=== PATIENT | female | born 1930 | race Asian ===

== ENCOUNTER 2017-07-02 15:11 | Inpatient (IN) | payer MEDICARE, OTHER ==
[~2017-07-02] VITALS: Ht 154.9 cm; Wt 57.0 kg
[2017-07-02] MEDS ORDERED: MECLIZINE 12.5 MG TAB PO ONE (16:00)
[2017-07-02] MEDS ORDERED: SOD CHLORIDE 0.9% 500 ML IV STA (17:43)
[2017-07-02 18:00] LABS: BILIRUBIN,INDIRECT 0.1 mg/dl (0-1.1); BILIRUBIN,TOTAL 0.1 mg/dl (0.2-1.3); CALCIUM 7.4 mg/dl (8.4-10.2); CREATININE 2.09 mg/dl (0.44-1.00)
[2017-07-02 18:11] LABS: BASOPHILS % 0.6 % (0.0-2.0); EOSINOPHILS # 0.2 10^3/ul (0.0-0.5); EOSINOPHILS % 2.3 % (0.0-7.0); HEMATOCRIT 29.8 % (37.0-47.0); HEMOGLOBIN 10.5 g/dl (12.0-16.0); LYMPHOCYTES # 0.8 10^3/ul (0.8-2.9); LYMPHOCYTES % 12.8 % (15.0-51.0); MEAN CORPUSCULAR HEMOGLOBIN 31.1 pg (29.0-33.0); MEAN CORPUSCULAR HGB CONC 35.2 g/dl (32.0-37.0); MEAN CORPUSCULAR VOLUME 88.2 fl (82.0-101.0); MEAN PLATELET VOLUME 10.3 fl (7.4-10.4); MONOCYTE # 0.7 10^3/ul (0.3-0.9); MONOCYTES % 11.4 % (0.0-11.0); NEUTROPHIL # 4.6 10^3/ul (1.6-7.5); PLATELET COUNT 144 10^3/UL (140-415); RED BLOOD COUNT 3.38 10^6/ul (4.20-5.40); RED CELL DISTRIBUTION WIDTH 13.7 % (11.5-14.5); WHITE BLOOD COUNT 6.4 10^3/ul (4.8-10.8)
--- NOTE | 2017-07-02 18:26 | RADRPT ---
PROCEDURE: XR Chest. CLINICAL INDICATION: Abdominal pain. TECHNIQUE: Single AP portable chest. COMPARISON: No prior Chest x-ray FINDINGS: The cardiomediastinal silhouette is within normal limits of size. Dual chamber left subclavian pacem krystin. New Atherosclerotic calcification of the aorta. The lungs are clear without pleural effusion or focal consolidation. No pneumothorax. The osseous structures and soft tissues are unremarkable. IMPRESSION: 1. No evidence for active cardiopulmonary disease. RPTAT:AAJJ Physician Moose Date Time Electronically viewed and signed by Physician Moose on 07/02/2017 18:25 NICHOLE/
--- NOTE | 2017-07-02 18:41 | RADRPT ---
PROCEDURE: CT Brain without contrast. CLINICAL INDICATION: Vertigo, altered mental status TECHNIQUE: Routine CT scan of the brain was performed on a high resolution multi detector scanner without intravenous contrast. One or more of the following dose reduction techniques were used: Auto mated exposure control; Adjustment of the mA and/or kV according to patient size; Use of iterative r econstruction technique. CTDI = 45 mGy. DLP = 720 mGy-cm. DICOM images are available. COMPARISON: No prior relevant examinations are available for comparison. FINDINGS: Hemorrhage: No evidence of intracranial hemorrhage. Acute ischemic changes: No evidence of acute ischemic changes. Mass effect: 2.0 x 1.7 x 2.0 cm left opercular extra-axial lesion likely representing a meningioma. Parenchymal volume: Mild central parenchymal volume loss is evident. Ventricular system: Concordant with parenchymal volume. Chronic changes: There are numerous and confluent areas of significant low attenuation change within the supratentorial white matter most compatible with severe chronic microvascular ischemic changes. Atherosclerotic calcifications of the cavernous portions of both internal carotid arteries are prese nt. Extracranial soft tissues: Unremarkable. Calvarium: No fractures. Paranasal sinuses: Visualized paranasal sinuses are clear. Mastoid air cells: Visualized mastoid air cells are clear. IMPRESSION: No acute intracranial abnormalities. Severe chronic-appearing microvascular ischemic changes of the supratentorial white matter. Small left opercular apparent meningioma. RPTAT: AADD .Zoran Rihc MD, Date Time Electronically viewed and signed by .Zoran Rich MD, on 07/02/2017 18:41 .B/
[2017-07-02 19:21] LABS: ADD UMIC YES; UR ASCORBIC ACID NEGATIVE (NEGATIVE); UR BACTERIA FEW /HPF (NONE SEEN); UR BILIRUBIN (Dip) NEGATIVE (NEGATIVE); UR BLOOD (Dip) 1+ mg/dL (NEGATIVE); UR CLARITY CLEAR (CLEAR); UR COLOR YELLOW (YELLOW); UR GLUCOSE (Dip) NEGATIVE (NEGATIVE); UR KETONES (Dip) NEGATIVE (NEGATIVE); UR LEUKOCYTE ESTERASE (Dip) 1+ Leu/ul (NEGATIVE); UR NITRITE (Dip) NEGATIVE (NEGATIVE); UR RBC 3 /HPF (0-5); UR TOTAL PROTEIN (Dip) NEGATIVE (NEGATIVE); UR UROBILINOGEN (Dip) NEGATIVE (NEGATIVE)
[2017-07-02] MEDS ORDERED: SOD CHLORIDE 0.9% 500 ML IV ONE (19:30)
[2017-07-02] MEDS ORDERED: CEFEPIME 1GM/50 ML (PMX) 50 ML IVPB ONE (19:30)
[2017-07-02] MEDS ORDERED: MECL-77 PO (20:06)
[2017-07-02] MEDS ORDERED: HYDR25TA6 PO (20:06)
[2017-07-02] MEDS ORDERED: IBUP-1542 PO (20:06)
[2017-07-02] MEDS ORDERED: LOSA50TA6 PO (20:07)
[2017-07-02] MEDS ORDERED: PREG50CA PO (20:07)
[2017-07-02] MEDS ORDERED: APIX5TAB PO (20:08)
[2017-07-02] MEDS ORDERED: OMEG1CAP2 PO (20:08)
[2017-07-02] MEDS ORDERED: ADV50050 INHALATION (20:09)
[2017-07-02] MEDS ORDERED: ESOM40CA PO (20:10)
[2017-07-02] MEDS ORDERED: CELE100C PO (20:10)
[2017-07-02] MEDS ORDERED: CLINDAMYCIN 300 MG CAP PO ONE (20:30)
[2017-07-02] MEDS ORDERED: SOD CHLORIDE 0.9% 1,000 ML IV ONE (21:00)
[2017-07-02] MEDS ORDERED: ACETAMINOPHEN 325 MG TAB PO PRN (21:00)
[2017-07-02] MEDS ORDERED: ONDANSETRON 4 MG INJ IV PRN (21:00)
[2017-07-02] MEDS ORDERED: POTASSIUM CHLORIDE (SR) 20 MEQ TAB PO ONE (21:27)
[2017-07-02] MEDS ORDERED: ONDANSETRON 4 MG TAB PO PRN (21:30)
[2017-07-02] MEDS ORDERED: NACL 0.9% 3 ML SYG IV SCH (21:30)
[2017-07-02] MEDS ORDERED: NITROGLYCERIN (SL) 0.4 MG TAB SL PRN (21:30)
--- NOTE | 2017-07-02 22:20 | RADRPT ---
PROCEDURE: US renal. CLINICAL INDICATION: Acute kidney injury. TECHNIQUE: Elizabeth scale and color Doppler imaging of the kidneys and bladder. COMPARISON: None Available. FINDINGS: Right kidney: 8.5 cm in length. Normal in echogenicity. No nephrolithiasis, hydronephrosis, or eduar l mass. Left kidney: 9.0 cm in length. Normal in echogenicity. No nephrolithiasis, hydronephrosis, or renal mass. Bladder: Distended and unremarkable. IMPRESSION: 1. Unremarkable renal ultrasound. RPTAT: HLBP .Orlando Panda MD, MD Date Time Electronically viewed and signed by .Orlando Panda MD, MD on 07/02/2017 22:19 .P/
[2017-07-03] VITALS (11 sets, daily range): BP systolic 83–189; BP diastolic 44–95; PULSE 70–78; RESP 16–22; TEMP 98.1; Ht 154.9 cm; Wt 57.0 kg
[2017-07-03] MEDS: HYDROCODONE/APAP (5/325) TAB PO PRN ×2 (00:36→00:42)
[2017-07-03] MEDS ORDERED: AMOXICILLIN/CLAV 875 MG TAB PO SCH (01:00)
[2017-07-03] MEDS: SOD CHLORIDE 0.9% 1,000 ML IV SCH ×2 (02:10→15:37)
[2017-07-03] MEDS ORDERED: CEFTRIAXONE 1 GM/50 ML (PMX) 50 ML IVPB SCH (04:00)
[2017-07-03] MEDS ORDERED: MECLIZINE 25 MG TAB PO PRN (07:30)
--- NOTE | 2017-07-03 07:30 | HP ---
Date/Time of Note Date/Time of Note DATE: 07/03/17 TIME: 07:13 Assessment/Plan VTE Prophylaxis VTE Prophylaxis Intervention: SCD's Lines/Catheters IV [facility] Peripheral IV Urinary Cath still in place: No Assessment/Plan Chief Complaint/Hosp Course This is a 87-year-old female being admitted to the telemetry floor for: #1 Nonoliguric kidney injury: Acute versus acute on chronic. I do not have a baseline creatinine at this time. Creatinine is 2.09, will obtain urine studies , urinalysis did not show any protein. Will obtain a renal ultrasound. Urine microscope. Will provide the patient with IV fluid hydration with normal saline. Will consult nephrology. Hold thiazide diuretic and losartan at this time. Will also hold ibuprofen. #2 acute otitis media: Patient is allergic to penicillin, at the current time will initiate cefuroxime for 10 day treatment. #3 Meningioma: Incidental finding on CT of the brain. She denies any headaches. Will need to discuss this with the patient in the a.m. whether this is new to her or not. #4 hyponatremia: Likely secondary to thiazide effect as well as acute kidney injury. At the current time will provide fluid hydration with normal saline. Will continue to follow. Consult nephro #5 hypokalemia: Likely secondary to poor p.o. intake. We will replete. #6 Normocytic anemia: We will check iron panel. Also possibly secondary to underlying chronic kidney disease #7 thrombocytopenia: Etiology unknown at this time. Patient not having any signs of bleeding. Likely followed up as an outpatient with hematology workup. #8 asthma: Continue patient's home inhalers #9 hypertension: We will hold patient's blood pressure medications at this time in the setting of #1. Likely will need to start new agents depending on patient 's kidney function. #10 arthritis: At the current time will hold ibuprofen secondary to #1, as needed Tylenol. #11 Dual-chamber pacemaker: We will need to confirm with the patient regarding why she was given a pacemaker and she does not state any cardiac conditions. #12 novel anticoagulant: Patient is currently on Eliquis however patient did not state what she why she was on before. Again we will need to obtain a better history from her or any next of kin such as her grandson. #11 DVT GI prophylaxis: Eliquis, continue home PPI Further treatment strategy will be implemented as per the clinical course She is a poor historian will need to obtain old records, contact any close relatives such as her grandson to go for patient's medications as well as medical history. Problems: HPI/ROS Admit Date/Time Admit Date/Time Jul 02, 2017 at 21:16 Hx of Present Illness Chief complaint: Right ear pain, weakness Patient is a poor historian. This is a 87-year-old female who presented to the ED complaining of weakness and right-sided ear pain. She states that she lives in a snf facility where her grandson visits her. She states she had subjective fevers. She also has noticed changes in her hearing with the ear pain, though she also is hard of hearing to a certain degree as well. Allergies: Penicillin Patient's: See VIOLA PERLA Const: As per HPI Eyes : No pain discharge or redness or change in visual acuity ENT: As per HPI Respiratory: No shortness of breath, cough, sputum, wheezing, or pleuritic pain Cardiovascular: No chest pain, palpitation, PND, or edema GI : no change in appetite, abdominal pain, nausea, vomiting, diarrhea, constipation, or change in the color his stool Genitourinary: No dysuria, hematuria, flank pain , discharge or CVA tenderness Musculoskeletal: No joint pain, back pain, neck pain, restricted range of motion in neck or joints Skin: No rash, bruising or hives Neuro: No headache, dizziness, syncope, seizure, focal weakness Endocrine: No polyuria, polydipsia, temperature intolerance Psych: No hallucination, depression, anxiety or suicidal ideation PMH/Family/Social Past Medical History Asthma, hypertension, arthritis, osteoporosis Past Surgical History Pacemaker placement Family History Significant Family History: no pertinent family hx Social History Alcohol Use: none Smoking Status: Never smoker Drug Use: none Exam/Review of Systems Vital Signs Vitals Vital Signs Date Time Temp Pulse Resp B/P Pulse Ox O2 Delivery O2 Flow Rate FiO2 07/03/17 04:01 70 07/03/17 01:28 98.1 20 127/60 96 Room Air Exam Exam General: Patient is lying in bed in no acute distress HEENT: Atraumatic, normocephalic. The pupils are equal, round and reactive. Extraocular motor are intact, right ear pain on palpation of the tragus, erythema of the tympanic membrane with small effusion noted Neck: Supple with full range of motion. No rigidity or meningismus Chest: Nontender Lungs: Clear to auscultation bilaterally no crackles rales or wheezing Heart: Normal S1-S2, Regular rhythm and rate. No overt murmurs appreciated Abdomen: Soft , nontender, nondistended , bowel sounds are present. No guarding no rebound tenderness , No masses or organomegaly. No costovertebral temporal angle mass Extremities: Normal to inspection, no edema no cyanosis Neurologic: Normal mental status, speech normal, cranial nerves II through XII are intact, motor and sensory are intact, gait not assessed however patient states that she uses assistance to ambulate Additional Comments PROCEDURE: CT Brain without contrast. CLINICAL INDICATION: Vertigo, altered mental status TECHNIQUE: Routine CT scan of the brain was performed on a high resolution multi detector scanner without intravenous contrast. One or more of the following dose reduction techniques were used: Automated exposure control; Adjustment of the mA and/or kV according to patient size; Use of iterative reconstruction technique. CTDI = 45 mGy. DLP = 720 mGy-cm. DICOM images are available. COMPARISON: No prior relevant examinations are available for comparison. FINDINGS: Hemorrhage: No evidence of intracranial hemorrhage. Acute ischemic changes: No evidence of acute ischemic changes. Mass effect: 2.0 x 1.7 x 2.0 cm left opercular extra-axial lesion likely representing a meningioma. Parenchymal volume: Mild central parenchymal volume loss is evident. Ventricular system: Concordant with parenchymal volume. Chronic changes: There are numerous and confluent areas of significant low attenuation change within the supratentorial white matter most compatible with severe chronic microvascular ischemic changes. Atherosclerotic calcifications of the cavernous portions of both internal carotid arteries are present. Extracranial soft tissues: Unremarkable. Calvarium: No fractures. Paranasal sinuses: Visualized paranasal sinuses are clear. Mastoid air cells: Visualized mastoid air cells are clear. IMPRESSION: No acute intracranial abnormalities. Severe chronic-appearing microvascular ischemic changes of the supratentorial white matter. Small left opercular apparent meningioma. RPTAT: AADD .Zoran Rich MD, MD Date Time Electronically viewed and signed by .Zoran Rich MD, MD on 07/02/2017 18:41 .B/ CC: EDGAR CONRAD DO PROCEDURE: XR Chest. CLINICAL INDICATION: Abdominal pain. TECHNIQUE: Single AP portable chest. COMPARISON: No prior Chest x-ray FINDINGS: The cardiomediastinal silhouette is within normal limits of size. Dual chamber left subclavian pacemaker. New Atherosclerotic calcification of the aorta. The lungs are clear without pleural effusion or focal consolidation. No pneumothorax. The osseous structures and soft tissues are unremarkable. IMPRESSION: 1. No evidence for active cardiopulmonary disease. RPTAT:AAJJ Cindy Frank Physician Date Time Electronically viewed and signed by Physician Moose on 07/02/2017 18:25 NICHOLE/ CC: EDGAR CONRAD DO Labs Result Diagram: 07/02/17 1540 07/02/17 1540 Medications Medications Current Medications Sodium Chloride (NS) 1,000 ml @ 70 mls/hr [id number] IV Last administered on 02:10; Admin Dose 70 MLS/HR; Start 07/03/17 at 01:00 Ondansetron HCl (Zofran Tab) 4 mg Q6H PRN PO NAUSEA AND/OR VOMITING; Start at 21:30 Nitroglycerin (Nitroglycerin (Sl Tab) 0.4 Mg) 1 tab Q5M PRN SL CHEST PAIN; Start 07/02/17 at 21:30 Acetaminophen (Tylenol Tab) 650 mg Q6H PRN PO PAIN LEVEL 1-3 OR FEVER; Start 07/02/17 at 21:30 Acetaminophen/ Hydrocodone Bitart ([place] (5/325)) 1 tab Q6H PRN PO PAIN LEVEL 4 -6 Last administered on 07/03/17 00:42; Admin Dose 1 TAB; Start 07/02/17 at 21:30 Amoxicillin/ Clavulanate Potassium 875 mg 875 mg BID PO ; Start 07/03/17 at 01: 00 Ceftriaxone Sodium (Rocephin) 50 ml @ 100 mls/hr Q24H IVPB Last administered on 07/03/17t 05:28; Admin Dose 100 MLS/HR; Start 07/03/17 at 04:00 Cefuroxime Axetil (Ceftin) 500 mg BID PO ; Start 07/03/17 at 09:00; Stop 07/13 at 08:59; Status UNMADINA ROWLEY Jul 03, 2017 07:23
[2017-07-03 07:53] LABS: BASOPHILS % 0.9 % (0.0-2.0); EOSINOPHILS # 0.3 10^3/ul (0.0-0.5); EOSINOPHILS % 5.6 % (0.0-7.0); HEMATOCRIT 30.2 % (37.0-47.0); HEMOGLOBIN 10.5 g/dl (12.0-16.0); LYMPHOCYTES # 0.8 10^3/ul (0.8-2.9); LYMPHOCYTES % 16.6 % (15.0-51.0); MEAN CORPUSCULAR HEMOGLOBIN 31.2 pg (29.0-33.0); MEAN CORPUSCULAR HGB CONC 34.8 g/dl (32.0-37.0); MEAN CORPUSCULAR VOLUME 89.6 fl (82.0-101.0); MEAN PLATELET VOLUME 10.3 fl (7.4-10.4); MONOCYTE # 0.7 10^3/ul (0.3-0.9); MONOCYTES % 15.7 % (0.0-11.0); NEUTROPHIL # 2.8 10^3/ul (1.6-7.5); PLATELET COUNT 163 10^3/UL (140-415); RED BLOOD COUNT 3.37 10^6/ul (4.20-5.40); RED CELL DISTRIBUTION WIDTH 13.9 % (11.5-14.5); WHITE BLOOD COUNT 4.6 10^3/ul (4.8-10.8)
[2017-07-03] MEDS: PANTOPRAZOLE (EC) 40 MG TAB PO SCH (08:00)
[2017-07-03 08:24] LABS: ALBUMIN 3.1 g/dl (3.3-4.9); ALBUMIN/GLOBULIN RATIO 0.93; BILIRUBIN,INDIRECT 0.2 mg/dl (0-1.1); BILIRUBIN,TOTAL 0.2 mg/dl (0.2-1.3); CREATININE 1.23 mg/dl (0.44-1.00); POTASSIUM 3.6 mmol/L (3.5-5.1); TOTAL PROTEIN 6.4 g/dl (6.1-8.1)
[2017-07-03 08:44] LABS: THYROID STIMULATING HORMONE 2.14 MIU/L (0.465-4.680)
[2017-07-03] MEDS ORDERED: NON-FORMULARY/PATIENT OWN MED (Esomeprazole Mag Trihydrate (Nexium) 40 MG) PO SCH (09:00)
[2017-07-03] MEDS ORDERED: CEFUROXIME 250 MG TAB PO SCH (09:00)
[2017-07-03] MEDS: FISH OIL 1,000 MG CAP PO SCH (09:53)
[2017-07-03] MEDS: APIXABAN 5 MG TABLET PO SCH ×2 (09:53→21:30)
[2017-07-03] MEDS: SALMETEROL/FLUTICASONE 500/50 INHA INH SCH ×2 (09:53→21:00)
[2017-07-03] MEDS: PREGABALIN 50 MG CAP PO SCH (09:53)
--- NOTE | 2017-07-03 12:06 | CONS ---
DATE OF ADMISSION: 07/02/2017 DATE OF CONSULTATION: 07/03/2017 TYPE OF CONSULTATION: Nephrology. REASON FOR CONSULTATION: Acute kidney injury, hyponatremia. PHYSICIAN REQUESTING CONSULT: Dr. Alejandre. HISTORY OF PRESENT ILLNESS: This is an 87-year-old female with a past medical history of hypertensi on, history of asthma, history of meningioma, who presents to [facility] Emergency Room with weakness, right sided ear pain. The patient comes from a senior care facility. The pa ashley states she has been having subjective fevers, but has noticed also difficulty hearing in her r ight ear. The patient as a result came into the emergency room. Upon arrival, she had laboratory d frantz drawn, which showed a sodium 133, BUN 36, creatinine 2.09. Patient had a CT scan of the brain w [facility] showed apparent angioma and microvascular ischemic changes. Chest x-ray showed no evidence of acute cardiopulmonary disease. In the emergency room, the patient was given IV fluids, IV antibioti cs and admitted up to telemetry for further evaluation. In terms of the patient's renal history, the patient is a poor historian, but denies any prior histo ry of chronic kidney disease and denies any hemoptysis, hematemesis, hematochezia. PAST MEDICAL HISTORY: As stated above, history of hypertension, history of asthma, history of arthr itis. FAMILY HISTORY: Noncontributory. SOCIAL HISTORY: Does not drink, smoke, or drugs. MEDICATIONS: The patient's medications have been reviewed. ALLERGIES: NO KNOWN DRUG ALLERGIES. PAST SURGICAL HISTORY: Status post pacemaker placement. REVIEW OF SYSTEMS: A 14-point review of systems was conducted. Pertinent positives in HPI, otherwi se negative. PHYSICAL EXAMINATION: VITAL SIGNS: Blood pressure is 141/72, respirations 16, pulse 73, temperature 98.1. HEENT: Head is normocephalic. NECK: Supple. HEART: Regular rate. LUNGS: Show diminished breath sounds at base. ABDOMEN: Soft, nontender to palpation without rebound or guarding. EXTREMITIES: Negative for clubbing, cyanosis, no edema. DERMATOLOGIC: No rashes. MUSCULOSKELETAL: No joint effusions. NEUROLOGIC: No focal deficits. LABORATORY DATA: Shows sodium 139, potassium 3.6, chloride 101, BUN 26, creatinine 1.23. White cou nt 4.6, hemoglobin 10.5, hematocrit 30.2, platelet count is 163. IMAGING STUDIES: As stated in HPI. ASSESSMENT AND PLAN: This is an 87-year-old female who presents with: 1. Nonoliguric acute kidney injury with unknown baseline creatinine. Etiology of acute kidney inju ry is likely secondary to hemodynamics, possible NSAID use, possible hydrochlorothiazide and ARB eff ect. The patient is on home regimen of hydrochlorothiazide, ibuprofen and losartan. The patient's initial urinalysis shows no evidence of active sediment. Renal function has been improving with gen tle volume expansion. At this point, continue current treatment plan, supportive care, renally dose all meds. Continue to hold diuretic therapy and ARB at this time, would hold all NSAIDs at this ti me. Continue to monitor closely. We will follow up a renal ultrasound. 2. Hyponatremia secondary to acute kidney injury in conjunction with hydrochlorothiazide. The yoseph ent's sodium levels are improved. Continue to monitor. 3. Hypokalemia secondary to diuretic therapy, resolved. 4. Anemia. Monitor hemoglobin and hematocrit levels. 5. Mineral bone disorder. Continue to monitor calcium and phosphorus levels. 6. Hypertension. Continue to monitor blood pressure and adjust medications. Defer ARB at this marixa e. 7. Acute otitis media. Continue current antibiotic regimen. 8. Meningioma. Continue to monitor. 9. History of asthma. Continue medical management. 10. Arthritis. Continue current treatment plan. Continue pain control. 11. Atrial fibrillation. Continue current medical management. Thank you, Dr. Alejandre, for this interesting consult. It will be a pleasure to follow patient with you throughout the hospital course. Dictated By: PRITESH BARNEY/IVONE Conf#: [id number] DID#: [id number]
--- NOTE | 2017-07-03 17:07 | PN ---
Date/Time of Note Date/Time of Note DATE: 07/03/17 TIME: 17:04 Assessment/Plan VTE Prophylaxis VTE Prophylaxis Intervention: SCD's Lines/Catheters IV Catheter Type (from Nrsg): Peripheral IV Urinary Cath still in place: No Assessment/Plan Assessment/Plan 87 yo F with HTN admitted for feeling dizzy, found to have AOM, hyponatremia and SNEHA suspect the latter 2 are iatrogenic in origin #SNEHA: improving with holding ARB/hctz/nsaids #hyponatremia: likely iatrogenic. hold ARB/hctz #AOM: cont abx, will add cipro drops #normocytic anemia: iron studies pending #?leukopenia: repeat CBC #meningioma: dw pt and her daughter, outpatient follow up #h/o arrhythmia in setting of hx AFib sp PM placement: cont ATC #asthma: cont home meds #8 asthma: Continue patient's home inhalers Subjective 24 Hr Interval Summary Free Text/Dictation wants to try getting out of bed on her own Exam/Review of Systems Vital Signs Vitals Vital Signs Date Time Temp Pulse Resp B/P Pulse Ox O2 Delivery O2 Flow Rate FiO2 07/03/17 16:49 98.0 70 152/79 07/03/17 15:50 20 94 07/03/17 01:28 Room Air Intake and Output 07/02/17 07/02/17 07/03/17 15:00 23:00 07:00 Intake Total 200 ml Balance 200 ml Exam nad no mrg lungs clear abd soft no rashes +RA changes to hands labs reviewed Results Result Diagram: 07/03/17 0709 07/03/17 0709 Results 24 hrs Laboratory Tests Test 07/02/17 19:00 07/02/17 23:52 07/03/17 07:09 Urine Color YELLOW Urine Clarity CLEAR Urine pH 5.0 Urine Specific [place] 1.010 Urine Ketones NEGATIVE Urine Nitrite NEGATIVE Urine Bilirubin NEGATIVE Urine Urobilinogen NEGATIVE Urine Leukocyte Esterase 1+ H Urine Microscopic RBC 3 Urine Microscopic WBC 9 H Urine Bacteria FEW A Urine Hemoglobin 1+ H Urine Glucose NEGATIVE Urine Total Protein NEGATIVE Osmolality 282 Magnesium Level 2.0 White Blood Count 4.6 #L Red Blood Count 3.37 L Hemoglobin 10.5 L Hematocrit 30.2 L Mean Corpuscular Volume 89.6 Mean Corpuscular Hemoglobin 31.2 Mean Corpuscular Hemoglobin Concent 34.8 Red Cell Distribution Width 13.9 Platelet Count 163 Mean Platelet Volume 10.3 Neutrophils % 61.0 Lymphocytes % 16.6 Monocytes % 15.7 H Eosinophils % 5.6 Basophils % 0.9 Nucleated Red Blood Cells % 0.0 Neutrophils # 2.8 Lymphocytes # 0.8 Monocytes # 0.7 Eosinophils # 0.3 Basophils # 0.0 Nucleated Red Blood Cells # 0.0 Sodium Level 139 Potassium Level 3.6 Chloride Level 101 Carbon Dioxide Level 28 Anion Gap 14 Blood Urea Nitrogen 26 H Creatinine 1.23 H Glucose Level 78 Hemoglobin A1c 5.7 Calcium Level 8.0 L Total Bilirubin 0.2 Direct Bilirubin 0.00 Indirect Bilirubin 0.2 Aspartate Amino Transf (AST/SGOT) 23 Alanine Aminotransferase (ALT/SGPT) 25 Alkaline Phosphatase 55 Total Protein 6.4 Albumin 3.1 L Globulin 3.30 H Albumin/Globulin Ratio 0.93 Thyroid Stimulating Hormone (TSH) 2.140 Medications Medications Current Medications Sodium Chloride (NS) 1,000 ml @ 70 mls/hr [id number] IV Last administered on 15:37; Admin Dose 70 MLS/HR; Start 07/03/17 at 01:00 Ondansetron HCl (Zofran Tab) 4 mg Q6H PRN PO NAUSEA AND/OR VOMITING; Start at 21:30 Nitroglycerin (Nitroglycerin (Sl Tab) 0.4 Mg) 1 tab Q5M PRN SL CHEST PAIN; Start 07/02/17 at 21:30 Acetaminophen (Tylenol Tab) 650 mg Q6H PRN PO PAIN LEVEL 1-3 OR FEVER; Start 07/02/17 at 21:30 Acetaminophen/ Hydrocodone Bitart ([place] (5/325)) 1 tab Q6H PRN PO PAIN LEVEL 4 -6 Last administered on 07/03/17 00:42; Admin Dose 1 TAB; Start 07/02/17 at 21:30 Apixaban (Eliquis) 5 mg BID PO Last administered on 07/03/17 09:53; Admin Dose 5 MG; Start 07/03/17 at 09:00 Meclizine HCl (Antivert) 25 mg Q8H PRN PO DIZZINESS Last administered on 12:13; Admin Dose 25 MG; Start 07/03/17 at 07:30 Pregabalin (Lyrica) 50 mg DAILY PO Last administered on 07/03/17 09:53; Admin Dose 50 MG; Start 07/03/17 at 09:00 Salmeterol Xinafoate/ Fluticasone (Advair 500/50 Diskus) 1 inh BID INH Last administered on 07/03/17 09:53; Admin Dose 1 INH; Start 07/03/17 at 09:00 Fish Oil (Fish Oil) 1,000 mg DAILY PO Last administered on 07/03/17 09:53; Admin Dose 1,000 MG; Start 07/03/17 at 09:00 Pantoprazole (Protonix Tab) 40 mg DAILY@06 PO Last administered on 07/03/17 08:00; Admin Dose 40 MG; Start 07/03/17 at 08:00 Carvedilol (Coreg) 3.125 mg BID PO Last administered on 07/03/17 13:00; Admin Dose 3.125 MG; Start 07/03/17 at 13:00 Clonidine (Catapres) 0.1 mg Q6H PRN PO SBP>160 Last administered on 07/03/17 15:39; Admin Dose 0.1 MG; Start 07/03/17 at 15:30 ANURADHA MAY MD Jul 03, 2017 17:07 Dose 5 MG; Start 07/03/17 at 09:00 Meclizine HCl (Antivert) 25 mg Q8H PRN PO DIZZINESS Last administered on 12:13; Admin Dose 25 MG; Start 07/03/17 at 07:30 Pregabalin (Lyrica) 50 mg DAILY PO Last administered on 07/03/17 09:53; Admin Dose 50 MG; Start 07/03/17 at 09:00 Salmeterol Xinafoate/ Fluticasone (Advair 500/50 Diskus) 1 inh BID INH Last administered on 07/03/17 09:53; Admin Dose 1 INH; Start 07/03/17 at 09:00 Fish Oil (Fish Oil) 1,000 mg DAILY PO Last administered on 07/03/17 09:53; Admin Dose 1,000 MG; Start 07/03/17 at 09:00 Pantoprazole (Protonix Tab) 40 mg DAILY@06 PO Last administered on 07/03/17 08:00; Admin Dose 40 MG; Start 07/03/17 at 08:00 Carvedilol (Coreg) 3.125 mg BID PO Last administered on 07/03/17 13:00; Admin Dose 3.125 MG; Start 07/03/17 at 13:00 Clonidine (Catapres) 0.1 mg Q6H PRN PO SBP>160 Last administered on 07/03/17 15:39; Admin Dose 0.1 MG; Start 07/03/17 at 15:30 ANURADHA MAY MD Jul 03, 2017 17:07
[2017-07-03] MEDS: CIPROFLOXACIN HCL OTIC DROP 0.25 ML RIGHT EAR SCH (21:30)
[2017-07-04 02:36] VITALS: BP 129/85; RESP 18
[2017-07-04] MEDS: ACETAMINOPHEN 325 MG TAB PO PRN ×2 (04:43→18:50)
[2017-07-04] MEDS: PANTOPRAZOLE (EC) 40 MG TAB PO SCH (05:37)
[2017-07-04 06:21] LABS: ADD UMIC NO; UR ASCORBIC ACID NEGATIVE (NEGATIVE); UR BILIRUBIN (Dip) NEGATIVE (NEGATIVE); UR BLOOD (Dip) NEGATIVE (NEGATIVE); UR CLARITY CLEAR (CLEAR); UR COLOR YELLOW (YELLOW); UR GLUCOSE (Dip) NEGATIVE (NEGATIVE); UR KETONES (Dip) NEGATIVE (NEGATIVE); UR LEUKOCYTE ESTERASE (Dip) NEGATIVE Leu/ul (NEGATIVE); UR NITRITE (Dip) NEGATIVE (NEGATIVE); UR SPECIFIC GRAVITY (Dip) 1.012 (1.003-1.030); UR TOTAL PROTEIN (Dip) NEGATIVE (NEGATIVE); UR UROBILINOGEN (Dip) NEGATIVE (NEGATIVE)
[2017-07-04 06:47] LABS: ABNORMAL IP MESSAGE 1; EOSINOPHILS # 0.3 10^3/ul (0.0-0.5); EOSINOPHILS % 9.4 % (0.0-7.0); HEMATOCRIT 29.8 % (37.0-47.0); HEMOGLOBIN 10.4 g/dl (12.0-16.0); LYMPHOCYTES # 0.6 10^3/ul (0.8-2.9); LYMPHOCYTES % 18.5 % (15.0-51.0); MEAN CORPUSCULAR HGB CONC 34.9 g/dl (32.0-37.0); MEAN CORPUSCULAR VOLUME 88.7 fl (82.0-101.0); MEAN PLATELET VOLUME 10.4 fl (7.4-10.4); MONOCYTE # 0.4 10^3/ul (0.3-0.9); MONOCYTES % 14.4 % (0.0-11.0); NEUTROPHIL # 1.7 10^3/ul (1.6-7.5); NEUTROPHILS % 56.4 % (39.0-77.0); PLATELET COUNT 163 10^3/UL (140-415); RED BLOOD COUNT 3.36 10^6/ul (4.20-5.40); RED CELL DISTRIBUTION WIDTH 13.6 % (11.5-14.5)
[2017-07-04 07:07] LABS: IRON 23 ug/dl (35-150)
[2017-07-04 07:15] LABS: POSITIVE DIFF @See below
[2017-07-04 07:16] LABS: TOTAL IRON BINDING CAPACITY 249 ug/dl (241-421)
[2017-07-04 07:23] LABS: CALCIUM 8.2 mg/dl (8.4-10.2); CREATININE 0.79 mg/dl (0.44-1.00); MAGNESIUM 1.7 mg/dl (1.7-2.5); PHOSPHORUS 3.1 mg/dl (2.5-4.9); POTASSIUM 3.6 mmol/L (3.5-5.1)
[2017-07-04 08:07] VITALS: BP 155/73; RESP 16
[2017-07-04] MEDS ORDERED: PREGABALIN 25 MG CAP ONE (08:56)
[2017-07-04] MEDS: SALMETEROL/FLUTICASONE 500/50 INHA INH SCH ×2 (09:30→20:03)
[2017-07-04] MEDS: FISH OIL 1,000 MG CAP PO SCH (09:32)
[2017-07-04] MEDS: FERROUS SULFATE (EC) 325 MG TAB PO SCH ×2 (09:32→20:03)
[2017-07-04] MEDS: APIXABAN 5 MG TABLET PO SCH ×2 (09:33→20:03)
[2017-07-04] MEDS: CIPROFLOXACIN HCL OTIC DROP 0.25 ML RIGHT EAR SCH ×2 (09:34→20:04)
[2017-07-04] MEDS ORDERED: VITAMIN A & D 5 GM OINT PACKET TOP ONE (09:41)
[2017-07-04] MEDS: PREGABALIN 50 MG CAP PO SCH (11:05)
[2017-07-04 14:01] VITALS: BP 156/76; RESP 18
--- NOTE | 2017-07-04 14:39 | PN ---
DATE: 07/04/2017 SUBJECTIVE: The patient is stable. No events overnight. OBJECTIVE: VITAL SIGNS: Blood pressure is 129/85, respirations 18, pulse 82, temperature 98.8. HEENT: Head is normocephalic. NECK: Supple. HEART: Regular rate. LUNGS: Show diminished breath sounds at base. ABDOMEN: Soft, nontender to palpation. No rebound or guarding. EXTREMITIES: Negative for clubbing, cyanosis, no edema. DERMATOLOGIC: No rashes. MUSCULOSKELETAL: No joint effusions. NEUROLOGIC: No change in exam. MEDICATIONS: The patient's medications have been reviewed. LABORATORY DATA: Shows white count 3.0, hemoglobin 10.4, platelet count is 163. Sodium 137, BUN 14 , creatinine 0.79. Iron saturation is 9%. ASSESSMENT AND PLAN: 1. Nonoliguric acute kidney injury with unknown baseline creatinine. Etiology of acute kidney inju ry was secondary to hemodynamics, possible NSAID use, ARB effect. The patient's renal function has improved with supportive care and holding diuretic therapy and NSAIDs. The patient's urinalysis was bland, no evidence of active sediment. At this point, will continue current treatment plan, suppor tive care, renally dose all meds. 2. Hyponatremia secondary to hydrochlorothiazide effect, improved. Continue to monitor. 3. Hypokalemia secondary to diuretic therapy, resolved. 4. Anemia with iron deficiency. Recommend starting the patient on iron therapy. 5. Mineral bone disorder. Monitor calcium and phosphorus levels. 6. Hypertension. Continue current blood pressure regimen. May resume patient on ARB. 7. Acute right otitis media: Continue antibiotic regimen. 8. History of asthma. Continue current treatment plan. 9. History of atrial fibrillation. Continue medical management. Dictated By: PRITESH GARCIA DO NR/NTS Conf#: [id number] DID#: [id number] CC: MADINA PEACE MD;*EndCC*
--- NOTE | 2017-07-04 15:47 | PN ---
Date/Time of Note Date/Time of Note DATE: 07/04/17 TIME: 15:44 Assessment/Plan VTE Prophylaxis VTE Prophylaxis Intervention: SCD's Lines/Catheters IV [facility]ter [facility]from [facility]): Saline Lock Urinary Cath still in place: No Assessment/Plan Assessment/Plan 87 yo F with HTN admitted for feeling dizzy, found to have AOM, hyponatremia and SNEHA suspect the latter 2 are iatrogenic in origin #AOM: cont abx #SNEHA:RESOLVED #hyponatremia: RESOLVEDhold ARB/hctz #normocytic anemia: +JESSICA. Start iron #leukopenia: check B12/folate. outpatient follow up #meningioma: dw pt and her daughter 07.03, outpatient follow up #h/o arrhythmia in setting of hx AFib sp PM placement: cont ATC #asthma: cont home meds #dispo: PT says SNF v HH. CM cs placed Subjective 24 Hr Interval Summary Free Text/Dictation still a little dizzy Exam/Review of Systems Vital Signs Vitals Vital Signs Date Time Temp Pulse Resp B/P Pulse Ox O2 Delivery O2 Flow Rate FiO2 07/04/17 14:01 98.4 78 18 156/76 98 07/03/17 01:28 Room Air Intake and Output 07/03/17 07/03/17 07/04/17 15:00 23:00 07:00 Intake Total 505 ml Balance 505 ml Exam nad no mrg lungs clear abd soft no rashes labs reviewed Cr nl. Na nl. Iron low. TSH nl, cortisol nl Results Result Diagram: 07/04/17 0549 07/04/17 0549 Results 24 hrs Laboratory Tests Test 07/04/17 02:00 07/04/17 05:49 07/04/17 06:02 Urine Color YELLOW Urine Clarity CLEAR Urine pH 6.0 Urine Specific [place] 1.012 Urine Ketones NEGATIVE Urine Nitrite NEGATIVE Urine Bilirubin NEGATIVE Urine Urobilinogen NEGATIVE Urine Leukocyte Esterase NEGATIVE Urine Hemoglobin NEGATIVE Urine Osmolality 527 Urine Random Creatinine 44.49 Urine Random Sodium 147 H Urine Glucose NEGATIVE Urine Total Protein 17.0 H White Blood Count 3.0 #L Red Blood Count 3.36 L Hemoglobin 10.4 L Hematocrit 29.8 L Mean Corpuscular Volume 88.7 Mean Corpuscular Hemoglobin 31.0 Mean Corpuscular Hemoglobin Concent 34.9 Red Cell Distribution Width 13.6 Platelet Count 163 Mean Platelet Volume 10.4 Neutrophils % 56.4 Lymphocytes % 18.5 Monocytes % 14.4 H Eosinophils % 9.4 H Basophils % 1.0 Nucleated Red Blood Cells % 0.0 Neutrophils # 1.7 Lymphocytes # 0.6 L Monocytes # 0.4 Eosinophils # 0.3 Basophils # 0.0 Nucleated Red Blood Cells # 0.0 Sodium Level 137 Potassium Level 3.6 Chloride Level 100 Carbon Dioxide Level 29 Anion Gap 12 Blood Urea Nitrogen 14 # Creatinine 0.79 Glucose Level 86 Calcium Level 8.2 L Phosphorus Level 3.1 Magnesium Level 1.7 Iron Level 23 L Total Iron Binding Capacity 249 Percent Iron Saturation 9 L Random Cortisol 9.4 Medications Medications Current Medications Ondansetron HCl (Zofran Tab) 4 mg Q6H PRN PO NAUSEA AND/OR VOMITING; Start at 21:30 Nitroglycerin (Nitroglycerin (Sl Tab) 0.4 Mg) 1 tab Q5M PRN SL CHEST PAIN; Start 07/02/17 at 21:30 Acetaminophen (Tylenol Tab) 650 mg Q6H PRN PO PAIN LEVEL 1-3 OR FEVER Last administered on 07/04/17 04:43; Admin Dose 650 MG; Start 07/02/17 at 21:30 Acetaminophen/ Hydrocodone Bitart ([place]ont (5/325)) 1 tab Q6H PRN PO PAIN LEVEL 4 -6 Last administered on 07/03/17 00:42; Admin Dose 1 TAB; Start 07/02/17 at 21:30 Apixaban (Eliquis) 5 mg BID PO Last administered on 07/04/17 09:33; Admin Dose 5 MG; Start 07/03/17 at 09:00 Meclizine HCl (Antivert) 25 mg Q8H PRN PO DIZZINESS Last administered on 12:13; Admin Dose 25 MG; Start 07/03/17 at 07:30 Pregabalin (Lyrica) 50 mg DAILY PO Last administered on 07/04/17 11:05; Admin Dose 50 MG; Start 07/03/17 at 09:00 Salmeterol Xinafoate/ Fluticasone (Advair 500/50 Diskus) 1 inh BID INH Last administered on 07/04/17 09:30; Admin Dose 1 INH; Start 07/03/17 at 09:00 Fish Oil (Fish Oil) 1,000 mg DAILY PO Last administered on 07/04/17 09:32; Admin Dose 1,000 MG; Start 07/03/17 at 09:00 Pantoprazole (Protonix Tab) 40 mg DAILY@06 PO Last administered on 07/04/17 05:37; Admin Dose 40 MG; Start 07/03/17 at 08:00 Carvedilol (Coreg) 3.125 mg BID PO Last administered on 07/04/17 09:34; Admin Dose 3.125 MG; Start 07/03/17 at 13:00 Clonidine (Catapres) 0.1 mg Q6H PRN PO SBP>160 Last administered on 07/03/17 15:39; Admin Dose 0.1 MG; Start 07/03/17 at 15:30 Ciprofloxacin HCl (Ciprofloxacin HCl Otic) 5 drop BID RIGHT EAR Last administered on 07/04/17 09:34; Admin Dose 5 DROP; Start 07/03/17 at 21:00 Ferrous Sulfate (Ferrous Sulfate (Ec)) 325 mg BID PO Last administered on 07/04 09:32; Admin Dose 325 MG; Start 07/04/17 at 09:00 ANURADHA MAY MD Jul 04, 2017 15:46
[2017-07-04 20:00] VITALS: BP 180/86; PULSE 80; RESP 18
--- NOTE | 2017-07-04 21:39 | ERD ---
ER Documentation Chief Complaint Chief Complaint BIBRA 83 for c/o weak and dizziness HPI Paramedics also report low blood pressure in the field. This 87-year-old female is brought in by ambulance because she has been feeling generalized weakness as well as dizziness described as a lightheadedness the last 2 days. Paramedics were not sure the patient's baseline is that she is slightly confused. She denies any pain including chest pain. She states that she has felt extra cold lately but denies fevers. Paramedics also report low blood pressure in the field ROS All systems reviewed and are negative except as per history of present illness. Medications Home Meds Reported Medications Celecoxib* (Celebrex*) 100 Mg Capsule, 100 MG PO BID, CAP 07/02/17 Esomeprazole Mag Trihydrate (Nexium) 40 Mg Capsule.dr, 40 MG PO DAILY, #30 CAP 07/02/17 Salmeterol Xinaf-Fluticasone* (Advair*) 500/50 Diskus Inhaler, 1 INH INHALATION BID, #1 INHALER 07/02/17 [place]-3 Acid Ethyl Esters (Lovaza) 1 Gm Capsule, 1 GM PO DAILY, CAP 07/02/17 Apixaban* (Eliquis*) 5 Mg Tablet, 5 MG PO BID, TAB 07/02/17 Pregabalin* (Lyrica*) 50 Mg Capsule, 50 MG PO DAILY, CAP 07/02/17 Losartan Potassium* (Losartan Potassium*) 50 Mg Tablet, 50 MG PO DAILY, TAB 07/02/17 Ibuprofen* (Ibuprofen*) 600 Mg Tablet, 600 MG PO Q8, TAB 07/02/17 Hydrochlorothiazide* (Hydrochlorothiazide*) 25 Mg Tab, 25 MG PO DAILY, #30 TAB 07/02/17 Meclizine Hcl* (Meclizine Hcl*) 25 Mg Tablet, 25 MG PO Q8H Y for DIZZINESS, TAB 07/02/17 Allergies Allergies: Coded Allergies: No Known Drug Allergy (Unverified Allergy, Unknown, 07/02/17) Penicillins (Verified Allergy, Unknown, 07/03/17) PMhx/Soc History of Surgery: Yes (Pacemaker () Anesthesia Reaction: No Hx Neurological Disorder: No Hx Respiratory Disorders: Yes (Asthma) Hx Cardiac Disorders: Yes (Pacemaker, HTN) Hx Psychiatric Problems: No Hx Miscellaneous Medical Probl: Yes (See EMR.) Hx Alcohol Use: No Hx Substance Use: No Hx Tobacco Use: No Smoking Status: Never smoker Physical Exam Vitals Vital Signs Date Time Temp Pulse Resp B/P Pulse Ox O2 Delivery O2 Flow Rate FiO2 07/02/17 19:25 98.0 18 133/72 100 Room Air 07/02/17 17:29 75 16 99/57 100 Room Air 07/02/17 15:23 98.3 77 20 95/56 100 Physical Exam Const: [] Mild distress Head: Atraumatic Eyes: Normal Conjunctiva, EOMI, PERRLA ENT: Normal External Ears, Nose and Mouth. Neck: Full range of motion..~ No meningismus. Resp: Clear to auscultation bilaterally Cardio: Regular rate and rhythm, no murmurs Abd: Soft, non tender, non distended. Normal bowel sounds Skin: No petechiae or rashes Back: No midline or flank tenderness Ext: No cyanosis, or edema Neur: Awake and alert and oriented 2, no focal deficits, 5 out of 5 strength all extremities Psych: Normal Mood and Affect Result Diagram: 07/04/17 0549 07/04/17 0549 Results 24 hrs Laboratory Tests Test 07/02/17 15:40 07/02/17 19:00 White Blood Count 6.410^3/ul Red Blood Count 3.3810^6/ul Hemoglobin 10.5g/dl Hematocrit 29.8% Mean Corpuscular Volume 88.2fl Mean Corpuscular Hemoglobin 31.1pg Mean Corpuscular Hemoglobin Concent 35.2g/dl Red Cell Distribution Width 13.7% Platelet Count 11682^3/UL Mean Platelet Volume 10.3fl Neutrophils % 72.0% Lymphocytes % 12.8% Monocytes % 11.4% Eosinophils % 2.3% Basophils % 0.6% Nucleated Red Blood Cells % 0.0/100WBC Neutrophils # 4.610^3/ul Lymphocytes # 0.810^3/ul Monocytes # 0.710^3/ul Eosinophils # 0.210^3/ul Basophils # 0.010^3/ul Nucleated Red Blood Cells # 0.010^3/ul Sodium Level 133mmol/L Potassium Level 3.0mmol/L Chloride Level 97mmol/L Carbon Dioxide Level 23mmol/L Anion Gap 16 Blood Urea Nitrogen 36mg/dl Creatinine 2.09mg/dl Glucose Level 89mg/dl Calcium Level 7.4mg/dl Total Bilirubin 0.1mg/dl Direct Bilirubin 0.00mg/dl Indirect Bilirubin 0.1mg/dl Aspartate Amino Transf (AST/SGOT) 57IU/L Alanine Aminotransferase (ALT/SGPT) 27IU/L Alkaline Phosphatase 62IU/L Total Protein 6.0g/dl Albumin 3.0g/dl Globulin 3.00g/dl Albumin/Globulin Ratio 1.00 Urine Color YELLOW Urine Clarity CLEAR Urine pH 5.0 Urine Specific [place] 1.010 Urine Ketones NEGATIVEmg/dL Urine Nitrite NEGATIVEmg/dL Urine Bilirubin NEGATIVEmg/dL Urine Urobilinogen NEGATIVEmg/dL Urine Leukocyte Esterase 1+Matt/ul Urine Microscopic RBC 3/HPF Urine Microscopic WBC 9/HPF Urine Bacteria FEW/HPF Urine Hemoglobin 1+mg/dL Urine Glucose NEGATIVEmg/dL Urine Total Protein NEGATIVEmg/dl Current Medications Medications (Trade) Dose Ordered Sig/Karena Route PRN Reason Start Time Stop Time Status Last Admin Dose Admin Meclizine HCl 25 mg 25 mg ONCE ONCE PO 07/02/17 16:00 07/02/17 16:01 DC 07/02/17 16:04 Sodium Chloride 500 ml @ 500 mls/hr Q1H STAT IV 07/02/17 17:43 07/02/17 18:42 DC 07/02/17 17:48 Cefepime HCl 50 ml @ 100 mls/hr ONCE ONCE IVPB 07/02/17 19:30 07/02/17 19:59 DC 07/02/17 19:56 Sodium Chloride (NS) 500 ml @ 500 mls/hr Q1H ONCE IV 07/02/17 19:30 07/02/17 20:29 DC 07/02/17 19:57 Clindamycin HCl (Cleocin) 300 mg ONCE ONCE PO 07/02/17 20:30 07/02/17 20:31 DC 07/02/17 21:47 Ondansetron HCl (Zofran Inj) 4 mg BRIDGE ORDER PRN IV NAUSEA AND/OR VOMITING 07/02/17 21:00 07/03/17 07:27 DC 07/02/17 22:54 Acetaminophen 650 mg 650 mg ER BRIDGE PRN PO MILD PAIN/FEVER 07/02/17 21:00 07/03/17 07:27 DC Sodium Chloride (NS) 1,000 ml @ 1,000 mls/hr Q1H ONCE IV 07/02/17 21:00 07/02/17 21:59 DC 07/02/17 21:14 Procedures/MDM UTI with dehydration, confusion, acute kidney injury, hypokalemia, hyponatremia in an elderly female. She is on a thiazide diuretic. No signs of acute cardiac ischemia. Is hydrated with normal saline. Hypotension did respond to fluid resuscitation and it was not necessary to start pressors or central line. Is also given cefepime and urine culture was obtained. She also has supportive right otitis media. She was given clindamycin tablet. She will need to be admitted for further hydration and correction of her renal abnormalities. I do not have a baseline creatinine I believe that this is at least partially acute the patient is significantly dehydrated on physical exam. Spoke with Dr. Alejandre will be admitting the patient for further resuscitation , potassium replacement, correction of sodium, management and workup. EKG interpretation: Sinus origin of rhythm without ST or T-wave changes concerning for acute ischemia monitor tech interpretation: Sinus rhythm without arrhythmia Chest x-ray interpretation: I see no acute process. I see no infiltrates, no widened mediastinum, no pneumothorax, no pulmonary edema, no fractures. Brain CT interpretation: See no acute process. I see no hemorrhage, no mass- effect, midline shift, no skull fracture. Patient does have an incidental meningioma. Departure Diagnosis: Primary Impression: Dehydration Additional Impressions: Complicated UTI (urinary tract infection) Otitis media Hyponatremia Hypokalemia Generalized weakness Normocytic anemia Meningioma Condition: Serious EDGAR CONRAD DO Jul 04, 2017 20:43
[2017-07-05] MEDS: PANTOPRAZOLE (EC) 40 MG TAB PO SCH ×2 (06:00→08:22)
[2017-07-05 07:13] LABS: CALCIUM 8.5 mg/dl (8.4-10.2); CREATININE 0.75 mg/dl (0.44-1.00); MAGNESIUM 1.9 mg/dl (1.7-2.5); PHOSPHORUS 3.3 mg/dl (2.5-4.9); POTASSIUM 3.6 mmol/L (3.5-5.1)
[2017-07-05] MEDS: ACETAMINOPHEN 325 MG TAB PO PRN (08:21)
[2017-07-05] MEDS: CIPROFLOXACIN HCL OTIC DROP 0.25 ML RIGHT EAR SCH (08:21)
[2017-07-05] MEDS: APIXABAN 5 MG TABLET PO SCH (08:22)
[2017-07-05] MEDS: FERROUS SULFATE (EC) 325 MG TAB PO SCH (08:22)
[2017-07-05] MEDS: FISH OIL 1,000 MG CAP PO SCH (08:22)
[2017-07-05] MEDS: PREGABALIN 50 MG CAP PO SCH (08:22)
[2017-07-05] MEDS: SALMETEROL/FLUTICASONE 500/50 INHA INH SCH (08:24)
[2017-07-05 08:57] VITALS: BP 177/82; PULSE 80
[2017-07-05] MEDS ORDERED: LISINOPRIL 10 MG TAB PO SCH (09:00)
[2017-07-05 09:15] VITALS: BP 172/89
--- NOTE | 2017-07-05 10:18 | PN ---
DATE: 07/05/2017 SUBJECTIVE: The patient is stable. No events overnight. OBJECTIVE: VITAL SIGNS: Blood pressure is 156/76, respiration 18, pulse 78, temperature 98.4. HEENT: Head is normocephalic. NECK: Supple. HEART: Regular rate. LUNGS: Show diminished breath sounds at base. ABDOMEN: Soft, nontender to palpation. No rebound or guarding. EXTREMITIES: Negative for clubbing, cyanosis, no edema. DERMATOLOGIC: No rashes. MUSCULOSKELETAL: No joint effusions. NEUROLOGIC: No change in exam. MEDICATIONS: The patient's medications have been reviewed. LABORATORY DATA: Shows a BMP within normal limits. ASSESSMENT AND PLAN: 1. Nonoliguric acute kidney injury with unknown baseline creatinine. Etiology is secondary to hemo dynamics. Renal function has returned has normalized. At this point, continue current treatment pl an, supportive care, renally dose all meds. 2. Hyponatremia secondary to hydrochlorothiazide effect, improved. 3. Hypokalemia, resolved. 4. Anemia of iron deficiency. Continue iron therapy. 5. Mineral bone disorder. Monitor calcium and phosphorus levels. 6. Hypertension. Blood pressure is elevated. Will start the patient on lisinopril, monitor renal function. 7. Acute otitis media. Continue antibiotic therapy. 8. History of asthma. Continue with treatment plan. 9. History of atrial fibrillation. Continue medical management. Dictated By: PRITESH BARNEY/IVONE Conf#: [id number] DID#: [id number] CC: MADINA PEACE MD;*EndCC*
[2017-07-05 11:39] VITALS: BP 177/98; PULSE 82
[2017-07-05 12:26] VITALS: BP 119/80; PULSE 65
[2017-07-05 14:13] VITALS: BP 125/79; PULSE 87
[2017-07-05] MEDS ORDERED: CARV3.1260 PO (14:49)
[2017-07-05] MEDS ORDERED: FER325 PO (14:49)
--- NOTE | 2017-07-05 14:53 | PDOCDIS ---
Discharge Instructions CONDITION Patient Condition: Stable HOME CARE INSTRUCTIONS: Special Diet: MECHANICAL SOFT FOLLOW UP/APPOINTMENTS Follow-up Plan We made some adjustments to your blood pressure medications: STARTED carvedilol/coreg twice daily STOPPED hydrochlorothiazide You still have several more days of ear drops and antibiotic pills for your ear infection Also you have been started on iron because the iron levels in your blood are low Do not hesitate to return to the ER should you experience, chest pain, shortness of breath, worsening dizziness, or any other troubling symptoms Please discuss this information with your regular doctor ANURADHA MAY MD Jul 05, 2017 14:53
[2017-07-05] MEDS ORDERED: CEFU500T45 PO (14:57)
[2017-07-05] MEDS ORDERED: CIPR1DRO3 RIGHT EAR (14:57)
--- NOTE | 2017-07-05 15:18 | DS ---
Date/Time of Note Date/Time of Note DATE: 07/05/17 TIME: 15:13 Discharge Summary Admission/Discharge Info Admit Date/Time Jul 02, 2017 at 21:16 Discharge Date/Time Discharge Diagnosis acute otitis media R ear, hyponatremia from hctz (resolved), meningioma, leukopenia, iron deficiency anemia Patient Condition: Stable Consults nephrology Procedures 12.14 NCCT head IMPRESSION: No acute intracranial abnormalities. Severe chronic-appearing microvascular ischemic changes of the supratentorial white matter. Small left opercular apparent meningioma. (2.0 x 1.7 x 2.0 cm left opercular extra-axial lesion likely representing a meningioma.) 12.14 DANIEL IMPRESSION: 1. Unremarkable renal ultrasound. 12.14 CXR IMPRESSION: 1. No evidence for active cardiopulmonary disease. 12.16 urine culture no growth Hematology - 72 Hrs Test 07/02/17 15:40 07/03/17 07:09 07/04/17 05:49 White Blood Count 6.410^3/ul (4.8-10.8) 4.610^3/ul (4.8-10.8) #L 3.010^3/ul (4.8-10.8) #L Red Blood Count 3.3810^6/ul (4.20-5.40) L 3.3710^6/ul (4.20-5.40) L 3.3610^6/ul (4.20-5.40) L Hemoglobin 10.5g/dl (12.0-16.0) L 10.5g/dl (12.0-16.0) L 10.4g/dl (12.0-16.0) L Hematocrit 29.8% (37.0-47.0) L 30.2% (37.0-47.0) L 29.8% (37.0-47.0) L Mean Corpuscular Volume 88.2fl (82.0-101.0) 89.6fl (82.0-101.0) 88.7fl (82.0-101.0) Mean Corpuscular Hemoglobin 31.1pg (29.0-33.0) 31.2pg (29.0-33.0) 31.0pg (29.0-33.0) Mean Corpuscular Hemoglobin Concent 35.2g/dl (32.0-37.0) 34.8g/dl (32.0-37.0) 34.9g/dl (32.0-37.0) Red Cell Distribution Width 13.7% (11.5-14.5) 13.9% (11.5-14.5) 13.6% (11.5-14.5) Platelet Count 45049^3/UL (140-415) 61089^3/UL (140-415) 96818^3/UL (140-415) Mean Platelet Volume 10.3fl (7.4-10.4) 10.3fl (7.4-10.4) 10.4fl (7.4-10.4) Neutrophils % 72.0% (39.0-77.0) 61.0% (39.0-77.0) 56.4% (39.0-77.0) Lymphocytes % 12.8% (15.0-51.0) L 16.6% (15.0-51.0) 18.5% (15.0-51.0) Monocytes % 11.4% (0.0-11.0) H 15.7% (0.0-11.0) H 14.4% (0.0-11.0) H Eosinophils % 2.3% (0.0-7.0) 5.6% (0.0-7.0) 9.4% (0.0-7.0) H Basophils % 0.6% (0.0-2.0) 0.9% (0.0-2.0) 1.0% (0.0-2.0) Nucleated Red Blood Cells % 0.0/100WBC (0.0-0.0) 0.0/100WBC (0.0-0.0) 0.0/100WBC (0.0-0.0) Neutrophils # 4.610^3/ul (1.6-7.5) 2.810^3/ul (1.6-7.5) 1.710^3/ul (1.6-7.5) Lymphocytes # 0.810^3/ul (0.8-2.9) 0.810^3/ul (0.8-2.9) 0.610^3/ul (0.8-2.9) L Monocytes # 0.710^3/ul (0.3-0.9) 0.710^3/ul (0.3-0.9) 0.410^3/ul (0.3-0.9) Eosinophils # 0.210^3/ul (0.0-0.5) 0.310^3/ul (0.0-0.5) 0.310^3/ul (0.0-0.5) Basophils # 0.010^3/ul (0.0-0.1) 0.010^3/ul (0.0-0.1) 0.010^3/ul (0.0-0.1) Nucleated Red Blood Cells # 0.010^3/ul (0.0-0.0) 0.010^3/ul (0.0-0.0) 0.010^3/ul (0.0-0.0) Chemistry Test 07/02/17 15:40 07/02/17 23:52 07/03/17 07:09 07/04/17 05:49 Sodium Level 133mmol/L (135-144) L 139mmol/L (135-144) 137mmol/L (135-144) Potassium Level 3.0mmol/L (3.5-5.1) L 3.6mmol/L (3.5-5.1) 3.6mmol/L (3.5-5.1) Chloride Level 97mmol/L (97-110) 101mmol/L (97-110) 100mmol/L (97-110) Carbon Dioxide Level 23mmol/L (21-31) 28mmol/L (21-31) 29mmol/L (21-31) Anion Gap 16 (8-16) 14 (8-16) 12 (8-16) Blood Urea Nitrogen 36mg/dl (7-20) H 26mg/dl (7-20) H 14mg/dl (7-20) # Creatinine 2.09mg/dl (0.44-1.00) H 1.23mg/dl (0.44-1.00) H 0.79mg/dl (0.44-1.00) Glucose Level 89mg/dl (70-220) 78mg/dl (70-220) 86mg/dl (70-220) Calcium Level 7.4mg/dl (8.4-10.2) L 8.0mg/dl (8.4-10.2) L 8.2mg/dl (8.4-10.2) L Total Bilirubin 0.1mg/dl (0.2-1.3) L 0.2mg/dl (0.2-1.3) Direct Bilirubin 0.00mg/dl (0.00-0.20) 0.00mg/dl (0.00-0.20) Indirect Bilirubin 0.1mg/dl (0-1.1) 0.2mg/dl (0-1.1) Aspartate Amino Transf (AST/SGOT) 57IU/L (15-46) H 23IU/L (15-46) Alanine Aminotransferase (ALT/SGPT) 27IU/L (13-69) 25IU/L (13-69) Alkaline Phosphatase 62IU/L (42-121) 55IU/L (42-121) Total Protein 6.0g/dl (6.1-8.1) L 6.4g/dl (6.1-8.1) Albumin 3.0g/dl (3.3-4.9) L 3.1g/dl (3.3-4.9) L Globulin 3.00g/dl (1.3-3.2) 3.30g/dl (1.3-3.2) H Albumin/Globulin Ratio 1.00 0.93 Osmolality 282mOsm/kg (280-295) Magnesium Level 2.0mg/dl (1.7-2.5) 1.7mg/dl (1.7-2.5) Hemoglobin A1c 5.7% (0-5.9) Thyroid Stimulating Hormone (TSH) 2.140MIU/L (0.465-4.680) Phosphorus Level 3.1mg/dl (2.5-4.9) Iron Level 23ug/dl (35-150) L Total Iron Binding Capacity 249ug/dl (241-421) Percent Iron Saturation 9% SAT (22-52) L Test 07/04/17 06:02 07/05/17 05:52 Random Cortisol 9.4ug/dl Sodium Level 139mmol/L (135-144) Potassium Level 3.6mmol/L (3.5-5.1) Chloride Level 100mmol/L (97-110) Carbon Dioxide Level 29mmol/L (21-31) Anion Gap 14 (8-16) Blood Urea Nitrogen 10mg/dl (7-20) Creatinine 0.75mg/dl (0.44-1.00) Glucose Level 87mg/dl (70-220) Calcium Level 8.5mg/dl (8.4-10.2) Phosphorus Level 3.3mg/dl (2.5-4.9) Magnesium Level 1.9mg/dl (1.7-2.5) Laboratory Tests Test 07/04/17 05:49 07/05/17 05:52 Blood Urea Nitrogen 14mg/dl 10mg/dl Carbon Dioxide Level 29mmol/L 29mmol/L Chloride Level 100mmol/L 100mmol/L Creatinine 0.79mg/dl 0.75mg/dl Glucose Level 86mg/dl 87mg/dl Hematocrit 29.8% Hemoglobin 10.4g/dl Platelet Count 99795^3/UL Potassium Level 3.6mmol/L 3.6mmol/L Sodium Level 137mmol/L 139mmol/L White Blood Count 3.010^3/ul Hx of Present Illness Chief complaint: Right ear pain, weakness Patient is a poor historian. This is a 87-year-old female who presented to the ED complaining of weakness and right-sided ear pain. She states that she lives in a [facility] facility where her grandson visits her. She states she had subjective fevers. She also has noticed changes in her hearing with the ear pain, though she also is hard of hearing to a certain degree as well. Hospital Course 87 yo F with HTN admitted for feeling dizzy, found to have AOM, hyponatremia and SNEHA suspect the latter 2 are iatrogenic in origin. Pt started on PO and topical ear drops for AOM. SNEHA resolved within 1 day of admission. NSAIDs also held. Hyponatremia resolved with cessation of hctz. BB initiated for improved BP control. Labs notable for anemia, w/u revealed JESSICA. Iron started. PCP follow up advised. WBCs nl on admission, slightly low at dc; PCP f/u advised. Neuroimaging with incidental finding of likely meningioma. This was discussed with patient and 2 of her daughters. PCP f/u advised. Above info dw pt and daughter on date of discharge. Daughter served as [employer] radiologic technology program director. Pt and daughter at bedside did not have contact info for pt's PCP at time of discharge. Pt's pharmacy was not open on Thursday to provide this info. I left a voicemail with pt's daughter Nakia requesting a call back with pt's PCP info. A copy of this dc summary was given pt patient to share with PCP as well Home Meds Active Scripts Cefuroxime Axetil* (Cefuroxime Axetil*) 500 Mg Tablet, 500 MG PO BID for 8 Days , #16 TAB Prov:ANURADHA MAY MD 07/05/17 Ciprofloxacin Hcl (CIPROFLOXACIN HCL) 1 Each Droperette, 5 DROP RIGHT EAR BID for 8 Days, #1 BOTTLE Prov:ANURADHA AMY MD 07/05/17 Carvedilol* (Carvedilol*) 3.125 Mg Tablet, 3.125 MG PO BID for 30 Days, #60 TAB Prov:ANURADHA AMY MD 07/05/17 Ferrous Sulfate* (Ferrous Sulfate*) 325 Mg Tabec, 325 MG PO BID for 30 Days, # 60 TAB Prov:ANURADHA MAY MD 07/05/17 Reported Medications Celecoxib* (Celebrex*) 100 Mg Capsule, 100 MG PO BID, CAP 07/02/17 Esomeprazole Mag Trihydrate (Nexium) 40 Mg Capsule.dr, 40 MG PO DAILY, #30 CAP 07/02/17 Salmeterol Xinaf-Fluticasone* (Advair*) 500/50 Diskus Inhaler, 1 INH INHALATION BID, #1 INHALER 07/02/17 [place]-3 Acid Ethyl Esters (Lovaza) 1 Gm Capsule, 1 GM PO DAILY, CAP 07/02/17 Apixaban* (Eliquis*) 5 Mg Tablet, 5 MG PO BID, TAB 07/02/17 Pregabalin* (Lyrica*) 50 Mg Capsule, 50 MG PO DAILY, CAP 07/02/17 Losartan Potassium* (Losartan Potassium*) 50 Mg Tablet, 50 MG PO DAILY, TAB 07/02/17 Meclizine Hcl* (Meclizine Hcl*) 25 Mg Tablet, 25 MG PO Q8H Y for DIZZINESS, TAB 07/02/17 Discontinued Reported Medications Ibuprofen* (Ibuprofen*) 600 Mg Tablet, 600 MG PO Q8, TAB 07/02/17 Hydrochlorothiazide* (Hydrochlorothiazide*) 25 Mg Tab, 25 MG PO DAILY, #30 TAB 07/02/17 Follow-up Plan We made some adjustments to your blood pressure medications: STARTED carvedilol/coreg twice daily STOPPED hydrochlorothiazide You still have several more days of ear drops and antibiotic pills for your ear infection Also you have been started on iron because the iron levels in your blood are low Do not hesitate to return to the ER should you experience, chest pain, shortness of breath, worsening dizziness, or any other troubling symptoms Please discuss this information with your regular doctor Primary Care Provider Not On Staff Doctor Time spent on discharge: > 30 minutes Pending Labs Laboratory Tests Test 07/05/17 05:52 Sodium Level 139mmol/L (135-144) Potassium Level 3.6mmol/L (3.5-5.1) Chloride Level 100mmol/L (97-110) Carbon Dioxide Level 29mmol/L (21-31) Anion Gap 14 (8-16) Blood Urea Nitrogen 10mg/dl (7-20) Creatinine 0.75mg/dl (0.44-1.00) Glucose Level 87mg/dl (70-220) Calcium Level 8.5mg/dl (8.4-10.2) Phosphorus Level 3.3mg/dl (2.5-4.9) Magnesium Level 1.9mg/dl (1.7-2.5) ANURADHA MAY MD Jul 05, 2017 15:18
[2017-07-05 15:49] VITALS: BP 140/86; RESP 18
[2017-07-06 16:16] LABS: MICROALBUMIN 1.8 mg/dL
== END 2017-07-05 16:50 | disposition home health service (06) | DRG 683 ==
LOC: E/R 15:11 → MS4 21:16 → MS2 07-03 15:03
PROVIDERS: ADMIT Family Medicine; ATTEND Family Medicine
DX: N17.9 Acute kidney failure, unspecified (principal); E87.1 Hypo-osmolality and hyponatremia; I10 Essential (primary) hypertension; J45.909 Unspecified asthma, uncomplicated; E87.6 Hypokalemia; H66.91 Otitis media, unspecified, right ear; D32.0 Benign neoplasm of cerebral meninges; D50.9 Iron deficiency anemia, unspecified; Z95.0 Presence of cardiac pacemaker
CPT/HCPCS: 36415; 70450; 71010; 76775; 80048; 80053; 81001; 81003; 82043; 82533; 83036; 83540; 83735; 83930; 83935; 84100; 84155; 84300; 84443; 85025; 87086; 93005; 96374; 96375; 97162; J0692; J0696; J2405; J7030; J7040